=== PATIENT | male | born 1990 | race Caucasian/White ===

== ENCOUNTER 2016-09-16 09:31 | Emergency (ER) | payer BC, OTHER ==
[~2016-09-16] VITALS: Ht 167.6 cm; Wt 70.0 kg
[2016-09-16 09:42] VITALS: Ht 167.6 cm; Wt 70.0 kg
[2016-09-16] MEDS ORDERED: VALA10004 PO (10:34)
[2016-09-16] MEDS ORDERED: PRED20TA PO (10:34)
[2016-09-16] MEDS ORDERED: MINE3.5O30 LEFT EYE (10:35)
--- NOTE | 2016-09-16 10:47 | ERD ---
ER Documentation Chief Complaint Date/Time DATE: 09/16/16 TIME: 10:39 Chief Complaint goodwin starting sunday; left ear pain HPI This a 26-year-old male who presents the emergency department today complaining of left ear pain that started almost 1 week ago after waking up from a nap. States that the pain has been intermittent but then he recently noticed that he had a metallic sensation and abnormal sensation on the tip of his tongue and also noticed he was not able to swish his mouthwash. States he is unable to close his left eye completely. States he went to his primary care doctor yesterday and was diagnosed with an ear infection and given Keflex and Mucinex. Denies any fevers or chills. Denies any sick contacts. ROS All systems reviewed and are negative except as per history of present illness. Medications Home Meds Active Scripts Mineral Oil/Petrolatum,White (ARTIFICIAL TEARS EYE OINT) 3.5 Gm Oint...g., 1 APPLIC LEFT EYE NEEDED Y for DRY EYES, #1 EA Prov:LEXII HE PA-C 09/16/16 Valacyclovir HCl (Valtrex) 1,000 Mg Tablet, 1000 MG PO TID for 7 Days, TAB Prov:LEXII HE PA-C 09/16/16 Prednisone* (Prednisone*) 20 Mg Tab, 60 MG PO DAILY for 7 Days, TAB Prov:LEXII HE PA-C 09/16/16 PMhx/Soc Medical and Surgical Hx: pt denies Medical Hx, pt denies Surgical Hx Hx Alcohol Use: No Hx Substance Use: No Hx Tobacco Use: No Smoking Status: Never smoker Physical Exam Vitals Vital Signs Date Time Temp Pulse Resp B/P Pulse Ox O2 Delivery O2 Flow Rate FiO2 09/16/16 09:42 98.6 75 18 174/81 97 Physical Exam Const: Pleasant, no acute distress Head: Atraumatic Eyes: Normal Conjunctiva. PERRLA. EOM intact. Unable to close left eye completely. ENT: Ears TMs normal. Nose no drainage. Throat no erythema no exudate. No vesicular lesions. Neck: Full range of motion..~ No meningismus. Resp: Clear to auscultation bilaterally Cardio: Regular rate and rhythm, no murmurs Skin: No petechiae or rashes Ext: No cyanosis, or edema Neur: Awake and alert. No gait ataxia. No upper or lower extremity weakness. Unable to wrinkle forehead left side of face. Psych: Normal Mood and Affect Procedures/MDM This is a 26-year-old male who presents the emergency department today complaining of left ear pain, left-sided facial numbness. Patient's physical exam appears most consistent with Aragon's palsy or cranial nerve palsy given that he is unable to wrinkle his forehead completely on his left side and his inability to close his left eye completely. Patient is afebrile and otherwise well-appearing. He has no gait ataxia no upper or lower extremity weakness. Do not feel the patient requires a head CT scan at this time. Low suspicion for acute hemorrhage, mass, abscess. Patient was given a prescription for prednisone, valacyclovir, artificial tears and instructed to wear an eye patch at night. I have explained to the patient that he may follow-up with his primary care doctor in regards to the Keflex he was prescribed for an ear infection. At this time the patient is stable for discharge and outpatient management. Patient should follow up with their PCP in the next 1-2 days. They may return to the emergency department sooner for any persistent or worsening of symptoms. Patient understood and agreed with the plan. Dr. Durand has seen and evaluated the patient and he is in agreement with the plan. Departure Diagnosis: Primary Impression: Aragon's palsy Condition: Fair Patient Instructions: Aragon's Palsy Referrals: your PCP Additional Instructions: Call your primary care doctor TOMORROW for an appointment during the next 1-2 days.See the doctor sooner or return here if your condition worsens before your appointment time. Take medications as prescribed Use artificial tears as needed and again at night and wear eye patch at night Take Tylenol for any headache LEXII HE PA-C Sep 16, 2016 10:47
== END 2016-09-16 10:53 | disposition home or self-care (01) ==
LOC: FTE 09:31
DX: G51.0 Bell's palsy (principal)
CPT/HCPCS: 99284